=== PATIENT | male | born 2000 | race Caucasian/White ===

== ENCOUNTER 2024-06-14 19:24 | Emergency (ER) | payer SELFPAY ==
[~2024-06-14] VITALS: Ht 172.7 cm; Wt 78.0 kg
[2024-06-14 19:29] VITALS: O2SAT 96
[2024-06-14] MEDS ORDERED: NALO4SPR BOTHNSTRLS (23:31)
[2024-06-15 00:50] VITALS: BP 140/86; PULSE 83; RESP 17; TEMP 36.7; O2SAT 96
== END 2024-06-15 01:18 | disposition home or self-care (01) ==
LOC: ER 19:24
DX: T40.601A Poisoning by unspecified narcotics, accidental (unintentional), initial encounter (principal); Y92.9 Unspecified place or not applicable
CPT/HCPCS: 99283